=== PATIENT | male | born 1960 ===

== ENCOUNTER 2017-09-18 13:28 | Outpatient (CLI) | payer MEDICARE ==
--- NOTE | 2017-09-18 16:47 | XRay Report ---
LEFT FOOT THREE VIEWS: 09/18/17 CLINICAL: Left foot pain. FINDINGS: No fracture or dislocation. Mild hallux valgus deformity. Moderate size plantar and Achilles calcaneal enthesophytes. Normal soft tissues. No soft tissue air or foreign body. IMPRESSION: Calcaneal enthesopathy and otherwise negative.
== END 2017-09-18 13:29 | disposition home or self-care (01) ==
LOC: SPVIMAG 13:28
PROVIDERS: ATTEND Orthopaedic Surgery Sports Medicine
DX: M20.12 Hallux valgus (acquired), left foot (principal); M77.32 Calcaneal spur, left foot